=== PATIENT | male | born 1985 | race Two or more races ===

== ENCOUNTER 2020-02-12 11:21 | Emergency (ER) | payer SELFPAY ==
[~2020-02-12] VITALS: Ht 190.5 cm; Wt 89.0 kg
[2020-02-12 12:09] VITALS: BP 120/80
== END 2020-02-12 12:10 | disposition home or self-care (01) ==
LOC: ER 11:47
DX: Z03.818 Encounter for observation for suspected exposure to other biological agents ruled out (principal)
CPT/HCPCS: 99282